=== PATIENT | male | born 1970 | race Caucasian/White ===

== ENCOUNTER 2021-11-17 17:45 | Emergency (ER) | payer OTHER ==
[~2021-11-17] VITALS: Ht 165.1 cm; Wt 81.2 kg
[2021-11-17 17:50] VITALS: BP 122/92
--- NOTE | 2021-11-17 19:08 | NUR ---
DONAL NEGRON examining patient.
[2021-11-17] MEDS ORDERED: cephALEXin 500 MG CAP PO ONE (19:15)
[2021-11-17] MEDS ORDERED: BACITRACIN OINT 500 UNITS/GM PKT TP ONE (19:15)
--- NOTE | 2021-11-17 19:20 | NUR ---
MEDICATED PER PAS ORDER, TOLERATED WELL.
[2021-11-17] MEDS ORDERED: BACTO TP (19:56)
[2021-11-17] MEDS ORDERED: CEPH-588 PO (19:56)
[2021-11-17 20:13] VITALS: BP 120/82
--- NOTE | 2021-11-17 20:13 | NUR ---
Patient discharged with v/s stable. Written and verbal after care instructions given and explained. Patient alert, oriented and verbalized understanding of instructions. Ambulatory with steady gait. All questions addressed prior to discharge. ID band removed. Patient advised to follow up with PMD. Rx of Mupirocin and Keflex given. Patient educated on indication of medication including possible reaction and side effects. Opportunity to ask questions provided and answered.
== END 2021-11-17 20:13 | disposition home or self-care (01) ==
LOC: MED 17:45
DX: S90.821A Blister (nonthermal), right foot, initial encounter (principal); S90.822A Blister (nonthermal), left foot, initial encounter; E11.9 Type 2 diabetes mellitus without complications; Z79.899 Other long term (current) drug therapy; X08.8XXA Exposure to other specified smoke, fire and flames, initial encounter; Y93.89 Activity, other specified; Y92.89 Other specified places as the place of occurrence of the external cause; Y99.8 Other external cause status
CPT/HCPCS: 16020; 90471; 90715; 99283